=== PATIENT | female | born 1975 | race Two or more races ===

== ENCOUNTER 2017-04-18 10:11 | Emergency (ER) | payer MEDICAID ==
[~2017-04-18] VITALS: Ht 157.5 cm; Wt 66.7 kg
[2017-04-18 10:11] VITALS: BP 130/112
[2017-04-18] MEDS ORDERED: HYDROCODONE/APAP 5/325MG 1 EACH TABLET ONE (10:55)
[2017-04-18] MEDS ORDERED: HYDROCODONE/APAP 5/325MG 1 EACH TABLET PO ONE (11:00)
== END 2017-04-18 11:26 | disposition home or self-care (01) ==
LOC: ER 10:17
DX: S93.602A Unspecified sprain of left foot, initial encounter (principal); G89.29 Other chronic pain; J45.909 Unspecified asthma, uncomplicated; N83.209 Unspecified ovarian cyst, unspecified side; Z88.0 Allergy status to penicillin; Z88.2 Allergy status to sulfonamides; Z88.8 Allergy status to other drugs, medicaments and biological substances; X58.XXXA Exposure to other specified factors, initial encounter; Y92.89 Other specified places as the place of occurrence of the external cause; Y93.89 Activity, other specified; Y99.8 Other external cause status
CPT/HCPCS: 73630; 99284; A4606; Z7610